=== PATIENT | female | born 1950 | race Caucasian/White ===

== ENCOUNTER 2018-04-17 05:14 | Inpatient (IN) ==
[2018-04-17] MEDS ORDERED: Chlorhexidine Gluconate 2% 1 Pack (2 Cloths) TOPICAL ONE (05:42)
[2018-04-17] MEDS ORDERED: Metoprolol Tartrate 25 MG Tablet PO ONE (05:42)
[2018-04-17] MEDS ORDERED: Chlorhexidine 4% Topical 120 APPLIC/120 ML Bottle TOPICAL SCH (05:45)
[2018-04-17] MEDS ORDERED: Vancomycin Inj 1,000 MG in Sodium Chlor 0.9% Inj 250 ML IV.SIG SCH (06:00)
[2018-04-17] MEDS ORDERED: Sodium Chlor 0.9% Inj 500 ML IV.SIG SCH (06:00)
[2018-04-17] MEDS ORDERED: Dexamethasone Inj 20 MG/5 ML Vial IV.PUSH ONE (06:00)
[2018-04-17] MEDS ORDERED: Famotidine PF Inj 20 MG/2 ML Vial ONE (06:17)
[2018-04-17] MEDS ORDERED: fentaNYL Citrate Inj 250 MCG/5 ML Ampul ONE (06:17)
[2018-04-17] MEDS ORDERED: fentaNYL Citrate Inj 100 MCG/2 ML Ampul ONE (06:17)
[2018-04-17] MEDS ORDERED: Ketamine Inj 50 MG/5 ML Syringe IV.PUSH ONE (06:32)
[2018-04-17] MEDS ORDERED: Bupivacaine Liposomal PF 1.3% Inj 20 ML Vial ONE (06:44)
[2018-04-17] MEDS ORDERED: Post-op Orders (for Pharmacy) OTHER STA (06:48)
[2018-04-17] MEDS ORDERED: Zolpidem Tartrate 5 MG Tablet PO PRN (06:48)
[2018-04-17] MEDS ORDERED: HYDROmorphone PF Inj 1 MG/ML Ampul IV.PUSH PRN (06:48)
[2018-04-17] MEDS ORDERED: Neostigmine Inj 5 MG/5 ML Syringe IV.PUSH ONE (06:59)
[2018-04-17] MEDS ORDERED: Lidocaine PF 1% Inj 5 ML Syringe OTHER ONE (06:59)
[2018-04-17] MEDS ORDERED: Ketorolac Inj 30 MG/ML (IVP) Vial IV.PUSH ONE (06:59)
[2018-04-17] MEDS ORDERED: Glycopyrrolate Inj 1 MG/5 ML Syringe IV.PUSH ONE (06:59)
[2018-04-17] MEDS ORDERED: Sodium Chlor 0.9% Inj 100 ML, Tranexamic Acid Inj 3,000 MG P-ARTICULR SCH ×2 (07:00)
[2018-04-17] MEDS ORDERED: Sodium Chlor 0.9% Inj 73.07 ML, Ropivacaine 0.5% PF Inj 24.63 ML, Ketorolac Inj 30 MG, ... P-ARTICULR SCH ×5 (07:00)
[2018-04-17] MEDS ORDERED: SODIUM CHLOR 0.9% IV.SIG SCH (07:00)
[2018-04-17] MEDS ORDERED: TRANEXAMIC ACID IV.SIG SCH (07:00)
[2018-04-17] MEDS ORDERED: ceFAZolin 2 GM Premix Inj 2 GM/50 ML PIGGYBACK IV.SIG SCH (07:00)
[2018-04-17] MEDS ORDERED: *Meperidine Inj 25 MG/ML Vial PERIprocedural Use ONLY ONE (09:33)
--- NOTE | 2018-04-17 09:46 | XR ---
EXAM DATE: 04/17/2018 6:47 AM EDT AGE/SEX: 68 years / Female INDICATIONS: Post op left total knee. CLINICAL DATA: This is the patient's initial encounter. Patient reports that signs and symptoms have been present for 1 day and indicates a pain score of Nonresponsive. MEDICAL/SURGICAL HISTORY: None. None. COMPARISON: No prior exams available for comparison. FINDINGS: A total knee arthroplasty is noted. The tibial and femoral components appear well seated. Surgical dr hunter and subcutaneous air are present. No fractures are seen. CONCLUSION: Status post left total knee arthroplasty. Electronically signed by: Alexandro Moody MD 04/17/2018 9:45 AM EDT
[2018-04-17] MEDS: amLODIPine 10 MG Tablet PO SCH (12:40)
[2018-04-17] MEDS: ceFAZolin Inj 2,000 MG in Sodium Chlor 0.9% Inj 80 ML IV.SIG SCH ×2 (14:55→18:18)
[2018-04-17] MEDS: Sertraline 100 MG Tablet PO SCH (14:56)
[2018-04-17] MEDS: Multivitamin/Minerals Therapeutic Tablet PO SCH ×2 (14:56→20:56)
[2018-04-17] MEDS: Senna/Docusate Sodium 8.6/50 MG Tablet PO SCH ×2 (14:56→20:57)
--- NOTE | 2018-04-17 15:29 | P.CONIM ---
History of Present Illness Service: [facility] Consult date: 04/17/18 Requesting Physician: Flaco Milton Reason for Consult: MEDICAL MANAGEMENT Primary Care Provider: Chris Vargas Chief Complaint: SP RIGHT TOTAL KNEE ARTHROPLASTY History of Present Illness: Patient is a 68-year-old female who underwent a right total knee arthroplasty today by Dr. Flaco Milton due to severe osteoarthritis. Patient tolerated the procedure well. We have been asked to help regarding medical management. Past medical history is significant for hypertension, hypothyroidism, hyperlipidemia, depression and anxiety. Patient underwent surgery on her right knee due to severe osteoarthritis and failed conservative treatment options. Family history significant for father having an OR in his 70s and being at 83 from dementia Review of Systems All other systems reviewed negative except as stated in [facility] - History History Provided By: Patient - Medical History Medical History: Medical History (Last Reviewed 04/17/18 @ 07:37 by Jessy Bucio) Arthritis Hyperlipidemia Hypertension Hypothyroidism Mitral valve prolapse Seasonal allergies - Surgical History Surgical History: Surgical History (Last Reviewed 04/17/18 @ 07:37 by Jessy Bucio) Hx of arthroscopy of left knee Hx of colonoscopy - Family History Family History: Family History (Last Updated 04/17/18 @ 15:25 by Eric Meng DO) Other Dementia Myocardial infarction - Social History I have reviewed the patient's Social History: Yes - Tobacco History Second Hand Smoke Exposure: No Tobacco Use In Past 30 Days: No Smoking Status: Never smoker - Alcohol History How Often Do You Have a Drink Containing Alcohol: 2 to 3 times a week - Substance Use History Substance History: No History of Abuse - Travel History History of Recent Travel: No Recent Travel in the [place] Within the Last 8 Weeks: No Recent Travel Out of the Country Within the Last 8 Weeks: No Medications and Allergies Active Medications: Active Medications Hydrocodone Bitart/Acetaminophen ([place] 7.5/325) 1 tab PO Q4H PRN PRN Reason: PAIN LESS THAN 5 ON SCALE Hydrocodone Bitart/Acetaminophen ([place] 7.5/325) 2 tab PO Q6H PRN PRN Reason: PAIN SCALE 5 TO 10 Last Admin: 04/17/18 11:54 Dose: 2 tab Al Hydroxide/Mg Hydroxide (Milk Of Magnesia Liq) 30 ml PO BID PRN PRN Reason: Mild Constipation Amlodipine Besylate (Norvasc) 10 mg PO DAILY PAUL Last Admin: 04/17/18 12:40 Dose: Not Given Aspirin (Aspirin Chew) 81 mg PO BID [facility] Last Admin: 04/17/18 09:51 Dose: 81 mg Chlorhexidine Gluconate (Hibiclens 4% Topical) 1 applicatio TOPICAL ONCE [facility] Stop: 04/21/18 05:44 Last Admin: 04/17/18 06:22 Dose: 1 applicatio Diphenhydramine HCl (Benadryl) 25 mg PO Q6H PRN PRN Reason: ITCHING Hydromorphone HCl (Dilaudid Pf Inj) 1 mg IV.PUSH Q3H PRN PRN Reason: BREAKTHROUGH PAIN Cefazolin Sodium 2,000 mg/ (Sodium Chloride) 100 mls @ 200 mls/hr IV.SIG Q6H [facility] Stop: 04/18/18 01:29 Last Admin: 04/17/18 14:55 Dose: 200 mls/hr Lactated Ringer's (Lr 1000 Ml Inj) 1,000 mls @ 80 mls/hr IV.CONT .[id number] [facility] Last Admin: 04/17/18 09:43 Dose: 80 mls/hr Lactulose (Lactulose Liq) 30 ml PO DAILY PRN PRN Reason: SEVERE CONSITIPATION Levothyroxine Sodium (Synthroid) 50 mcg PO DAILY@0600 [facility] Lisinopril (Prinivil) 40 mg PO DAILY [facility] Miscellaneous Information ([facility] Nursing Information) 0 each OTHER UNSCH PRN PRN Reason: SEE LABEL COMMENTS Stop: 04/18/18 08:56 Multivitamins/Minerals (Theragran-M) 1 tab PO BID [facility] Stop: 06/16/18 08:59 Last Admin: 04/17/18 14:56 Dose: 1 tab Ondansetron HCl (Zofran Inj) 4 mg IV.PUSH Q6H PRN PRN Reason: NAUSEA OR VOMITING Povidone Iodine (Betadine 7.5% Scrub) 1 applicatio TOPICAL ONCE [facility] Stop: 04/21/18 05:59 Pravastatin Sodium (Pravachol) 10 mg PO DAILY [facility] Last Admin: 04/17/18 12:41 Dose: Not Given Senna/Docusate Sodium (Amalia-Colace) 1 tab PO BID [facility] Last Admin: 04/17/18 14:56 Dose: 1 tab Sennosides (Senokot) 17.2 mg PO BID PRN PRN Reason: Moderate Constipation Sertraline HCl (Zoloft) 100 mg PO DAILY [facility] Last Admin: 04/17/18 14:56 Dose: 100 mg Sodium Chloride (Ns Flush) 2 ml IV.FLUSH UNSCH PRN PRN Reason: FLUSH AFTER USING IV ACCESS Sodium Chloride (Ns Flush) 2 ml IV.FLUSH BID [facility] Last Admin: 04/17/18 12:40 Dose: Not Given Zolpidem Tartrate (Ambien) 5 mg PO HS PRN PRN Reason: INSOMNIA Allergies Allergy/AdvReac Type Severity Reaction Status Date / Time shellfish derived Allergy Hives Verified 04/17/18 05:53 Home Medications Medication Instructions Recorded Confirmed Type amlodipine 10 mg PO DAILY 03/31/18 04/17/18 History cholecalciferol (vitamin D3) 5,000 unit PO DAILY 03/31/18 04/17/18 History [Vitamin D3] levothyroxine 50 mcg PO DAILY 03/31/18 04/17/18 History lisinopril 40 mg PO DAILY 03/31/18 04/17/18 History meloxicam 15 mg PO DAILY 03/31/18 04/17/18 History multivit with min-folic acid 1 tab PO DAILY 03/31/18 04/17/18 History [Adult Multivitamin Gummies] pravastatin 10 mg PO DAILY 03/31/18 04/17/18 History sertraline 100 mg PO DAILY 03/31/18 04/17/18 History Exam Vital signs: Vital Signs 04/17/18 05:59 04/17/18 08:56 04/17/18 09:15 Temperature 97.9 F 97.6 F Pulse Rate 68 80 76 Respiratory Rate 16 18 18 Blood Pressure 150/80 H 100/55 L 102/58 L Pulse Oximetry 98 92 L 93 L 04/17/18 09:30 04/17/18 09:45 04/17/18 10:00 Temperature Pulse Rate 82 78 74 Respiratory Rate 18 18 18 Blood Pressure 104/59 L 94/52 L 110/58 L Pulse Oximetry 94 L 93 L 93 L 04/17/18 11:30 04/17/18 12:58 Temperature 97.8 F 97.2 F L Pulse Rate 76 85 Respiratory Rate 18 19 Blood Pressure 107/60 129/61 Pulse Oximetry 93 L 90 L Intake & Output 04/16/18 04/17/18 04/17/18 18:59 06:59 18:59 Intake Total 1899.65 / 1899.65 Output Total 100 / 100 Balance 1799.65 / 1799.65 Weight 84.5 kg Intake: IV 412.65 / 412.65 Cyklokapron Inj 1,265 MG In NS 112.65 / 112.65 Inj 100 ML @ 200 mls/hr IV.SIG ONCE PAUL Rx#:[id number] Vancomycin Inj 1,000 MG In NS 250 / 250 Inj 250 ML @ 250 mls/hr IV.SIG WAX MOLDER PAUL Rx#:[id number] Ancef 2 GM Premix Inj 2 gm In 50 / 50 50 ml @ 100 mls/hr IV.SIG WAX MOLDER PAUL Rx#:[id number] Anesthesia Amount 1487 / 1487 Output: Estimated Blood Loss 100 / 100 Other: Weight On Admission 84.5 kg Narrative: GENERAL: Awake alert and oriented x3 talkative and cooperative SKIN: Warm and dry. Right knee is dressed HEAD: Atraumatic. Normocephalic. EYES: Pupils equal and round. No scleral icterus. No injection or drainage. ENT: No nasal bleeding or discharge. Mucous membranes pink and moist. Tongue is midline NECK: Trachea midline. No JVD. CARDIOVASCULAR: Regular rate and rhythm. S1-S2 no S3 or S4 RESPIRATORY: No accessory muscle use. Clear to auscultation. Breath sounds equal bilaterally. GASTROINTESTINAL: Abdomen soft, non-tender, nondistended. Hepatic and splenic margins not palpable. MUSCULOSKELETAL: Extremities without clubbing, cyanosis, or edema. No obvious deformities. Right knee is dressed NEUROLOGICAL: Awake and alert. No obvious cranial nerve deficits. Motor grossly within normal limits. Five out of 5 muscle strength in the arms and legs. Normal speech. PSYCHIATRIC: Appropriate mood and affect; insight and judgment normal. Results - Labs Labs: Laboratory Results - last 24 hr 04/17/18 06:00 Blood Type O Positive Blood Type Recheck Required Antibody Screen Negative - Imaging Impressions Knee X-Ray 04/17/18 06:47 CONCLUSION: Status post left total knee arthroplasty. Assessment and Plan - Plan Status post right total knee arthroplasty due to severe osteoarthritis. -Pain control per orthopedic surgery -DVT prophylaxis per orthopedic surgery Hypertension resume home medications, amlodipine and lisinopril Hyperlipidemia resume home medications continue on pravastatin Hypothyroidism resume home medications and check a TSH and free T4 in the a.m. -Continue on levothyroxine Depression/anxiety resume home medications continue on sertraline A.m. labs DVT prophylaxis per orthopedic surgery GI prophylaxis per Pepcid A.m. labs PT and OT Suspect patient will be discharged tomorrow Code Status: Full code Discussed Condition With: RN and patient Discharge Planning: Hopefully home with home health care tomorrow
[2018-04-18] MEDS: ceFAZolin Inj 2,000 MG in Sodium Chlor 0.9% Inj 80 ML IV.SIG SCH (01:09)
[2018-04-18 03:59] VITALS: RESP 20
[2018-04-18] MEDS ORDERED: Levothyroxine 50 MCG Tablet PO SCH (06:00)
[2018-04-18 07:24] LABS: Baso % (Auto) 0.2 % (0.0-2.0); Hematocrit 32.5 % (35.0-46.0); Hemoglobin 10.7 gm/dL (11.6-15.3); Lymph # (Auto) 1.7 th/mm3 (1.0-4.8); Lymph % (Auto) 8.8 % (9.0-44.0); Mean Corpuscular HGB Conc 32.9 % (32.0-36.0); Mean Corpuscular Hemoglobin 30.3 pg (27.0-34.0); Mean Platelet Volume 8.3 fL (7.0-11.0); Mono # (Auto) 1.9 th/mm3 (0.0-0.9); Mono % (Auto) 10.1 % (0.0-8.0); Neut # (Auto) 15.6 th/mm3 (1.8-7.7); Neut % (Auto) 80.9 % (16.0-70.0); Platelet Count 359 th/mm3 (150-450); Red Blood Count 3.53 mil/mm3 (4.00-5.30); Red Cell Distribution Width 12.6 % (11.6-17.2); White Blood Count 19.3 th/mm3 (4.0-11.0)
[2018-04-18 07:51] LABS: Albumin 3.2 g/dL (3.4-5.0); Anion Gap 9 meq/L (5-15); Aspartate Aminotransferase 22 U/L (15-37); Blood Urea Nitrogen 12 mg/dL (7-18); Calcium 8.7 mg/dL (8.5-10.1); Carbon Dioxide 26.7 meq/L (21.0-32.0); Chloride 104 meq/L (98-107); Glomerular Filtration Rate 76 mL/min (>89); Glucose,Random 107 mg/dL (74-106); Magnesium 2.4 mg/dL (1.5-2.5); Sodium 140 meq/L (136-145)
[2018-04-18 07:57] LABS: Alanine Aminotransferase 18 U/L (10-53); Alkaline Phosphatase 54 U/L (45-117); Free T4 (Free Thyroxine) 1.43 ng/dL (0.76-1.46); Phosphorus 4.1 mg/dL (2.5-4.9); Thyroid Stimulating Hormone 0.459 uIU/mL (0.358-3.740); Total Protein 6.6 g/dL (6.4-8.2)
[2018-04-18 07:59] LABS: Potassium 4.3 meq/L (3.5-5.1)
--- NOTE | 2018-04-18 08:15 | P.PNOP ---
Subjective Interval history: pain under control. Physical Exam Vital signs: Vital Signs 04/17/18 08:56 04/17/18 09:15 04/17/18 09:30 Temperature 97.6 F Pulse Rate 80 76 82 Respiratory Rate 18 18 18 Blood Pressure 100/55 L 102/58 L 104/59 L Pulse Oximetry 92 L 93 L 94 L 04/17/18 09:45 04/17/18 10:00 04/17/18 11:30 Temperature 97.8 F Pulse Rate 78 74 76 Respiratory Rate 18 18 18 Blood Pressure 94/52 L 110/58 L 107/60 Pulse Oximetry 93 L 93 L 93 L 04/17/18 12:58 04/17/18 17:02 04/17/18 20:00 Temperature 97.2 F L 97.6 F 98.4 F Pulse Rate 85 70 73 Respiratory Rate 19 20 19 Blood Pressure 129/61 118/60 113/59 L Pulse Oximetry 90 L 90 L 94 L 04/18/18 00:00 04/18/18 03:56 Temperature 97.3 F L 99.2 F Pulse Rate 64 62 Respiratory Rate 17 20 Blood Pressure 101/62 99/57 L Pulse Oximetry 95 92 L Intake & Output 04/17/18 04/18/18 04/18/18 18:59 06:59 18:59 Intake Total 2999.65 / 2999.65 200 / 200 Output Total 100 / 100 Balance 2899.65 / 2899.65 200 / 200 Weight 84.5 kg Intake: IV 1512.65 / 1512.65 200 / 200 LR 1000 mL Inj 1,000 ML @ 30 1000 / 1000 mls/hr IV.SIG .Q24H PA[facility] Rx#: [id number] Cyklokapron Inj 1,265 MG In NS 112.65 / 112.65 Inj 100 ML @ 200 mls/hr IV.SIG ONCE PAUL Rx#:[id number] Vancomycin Inj 1,000 MG In NS 250 / 250 Inj 250 ML @ 250 mls/hr IV.SIG OIL CHANGE TECHNICIAN PAUL Rx#:[id number] Ancef 2 GM Premix Inj 2 gm In 50 / 50 50 ml @ 100 mls/hr IV.SIG OIL CHANGE TECHNICIAN PAUL Rx#:[id number] Ancef Inj 2,000 MG In NS Inj 80 100 / 100 200 / 200 ML @ 200 mls/hr IV.SIG Q6H [facility] Rx#:[id number] Anesthesia Amount 1487 / 1487 Output: Estimated Blood Loss 100 / 100 Other: Date of Last Bowel Movement 04/17/18 04/17/18 Narrative: in bed, nad dressing c/d/i neg betty nvi Results - Labs CBC & Chem 7: 04/18/18 06:28 04/18/18 06:28 Laboratory Results - last 24 hr 04/18/18 04/18/18 06:28 06:28 WBC 19.3 H RBC 3.53 L Hgb 10.7 L Hct 32.5 L MCV 92.0 MCH 30.3 MCHC 32.9 RDW 12.6 Plt Count 359 MPV 8.3 Neut % (Auto) 80.9 H Lymph % (Auto) 8.8 L [place] % (Auto) 10.1 H Eos % (Auto) 0.0 Baso % (Auto) 0.2 Neut # (Auto) 15.6 H Lymph # (Auto) 1.7 [place] # (Auto) 1.9 H Eos # (Auto) 0.0 Baso # (Auto) 0.0 WBC Differential . Differential Comment Auto diff final Sodium 140 Potassium 4.3 Chloride 104 Carbon Dioxide 26.7 Anion Gap 9 BUN 12 Creatinine 0.76 Estimated GFR 76 L Random Glucose 107 H Calcium 8.7 Phosphorus 4.1 Magnesium 2.4 Total Bilirubin 0.4 AST 22 ALT 18 Alkaline Phosphatase 54 Total Protein 6.6 Albumin 3.2 L TSH 0.459 Free T4 1.43 - Imaging Impressions Knee X-Ray 04/17/18 06:47 CONCLUSION: Status post left total knee arthroplasty. Assessment and Plan - Ortho Post Op Day # 1 - Assessment and Plan s/p L TKA wbat ok to maintain dressing unless saturated asa 81 d/c planning home with hhc and PT - cleared today if does well in PT f/up dr. brandt 2 weeks
--- NOTE | 2018-04-18 08:16 | P.DCO ---
- Physical Therapy Physical Therapy: Gait training, Safety evaluation, Transfer training, bed to chair Knee: Total knee, Protocol: Left, Full weight bearing Left Lower Extremity Weight Bearing: Weight bearing as tolerated - Nursing RN: 3 days/week x 2 weeks Nursing: Dressing changes Dressing changes: Do not change dressing, Daily dressing change - Certification Need for Home Health services: I have seen patient Moira Glass on 04/18/18. My clinical findings support the need for the requested home health care services because: Need for Home Health Services: Limited ability to care for self, High risk of falls Homebound Certification: I certify that my clinical findings support that this patient is homebound because: Homebound Certification: Post-op weakness, Unsteady gait/balance
[2018-04-18] MEDS: Multivitamin/Minerals Therapeutic Tablet PO SCH (08:36)
[2018-04-18] MEDS: Senna/Docusate Sodium 8.6/50 MG Tablet PO SCH (08:36)
[2018-04-18] MEDS: amLODIPine 10 MG Tablet PO SCH (08:36)
[2018-04-18] MEDS: Sertraline 100 MG Tablet PO SCH (08:37)
[2018-04-18] MEDS ORDERED: Lisinopril 20 MG Tablet PO SCH (09:00)
--- NOTE | 2018-04-18 10:38 | P.PNIM ---
Subjective Interval history: Chief Complaint: SP LEFT TOTAL KNEE ARTHROPLASTY History of Present Illness: Patient is a 68-year-old female who underwent a LEFT total knee arthroplasty today by Dr. Flaco Milton due to severe osteoarthritis. Patient tolerated the procedure well. We have been asked to help regarding medical management. Past medical history is significant for hypertension, hypothyroidism, hyperlipidemia, depression and anxiety. Patient underwent surgery on her right knee due to severe osteoarthritis and failed conservative treatment options. Family history significant for father having an AL in his 70s and being at 83 from dementia 04-18 NO NEW COMPLAINTS TO GO HOME TODAY WITH [facility] HAS BEEN CLEARED BY ORTHO AFTER CLASS TODAY LABS ARE STABLE DW RN AND PT OK FROM HOSPITALIST PERSPECTIVE FOR DC Physical Exam Vital signs: Vital Signs 04/17/18 11:30 04/17/18 12:58 04/17/18 17:02 Temperature 97.8 F 97.2 F L 97.6 F Pulse Rate 76 85 70 Respiratory Rate 18 19 20 Blood Pressure 107/60 129/61 118/60 Pulse Oximetry 93 L 90 L 90 L 04/17/18 20:00 04/18/18 00:00 04/18/18 03:56 Temperature 98.4 F 97.3 F L 99.2 F Pulse Rate 73 64 62 Respiratory Rate 19 17 20 Blood Pressure 113/59 L 101/62 99/57 L Pulse Oximetry 94 L 95 92 L 04/18/18 08:00 Temperature 98.4 F Pulse Rate 67 Respiratory Rate 20 Blood Pressure 133/64 Pulse Oximetry 97 Intake & Output 04/17/18 04/18/18 04/18/18 18:59 06:59 18:59 Intake Total 2999.65 / 2999.65 200 / 200 Output Total 100 / 100 Balance 2899.65 / 2899.65 200 / 200 Weight 84.5 kg Intake: IV 1512.65 / 1512.65 200 / 200 LR 1000 mL Inj 1,000 ML @ 30 1000 / 1000 mls/hr IV.SIG .Q24H PAUL Rx#: [id number] Cyklokapron Inj 1,265 MG In NS 112.65 / 112.65 Inj 100 ML @ 200 mls/hr IV.SIG ONCE PAUL Rx#:[id number] Vancomycin Inj 1,000 MG In NS 250 / 250 Inj 250 ML @ 250 mls/hr IV.SIG SHEARER HELPER PAUL Rx#:[id number] Ancef 2 GM Premix Inj 2 gm In 50 / 50 50 ml @ 100 mls/hr IV.SIG SHEARER HELPER PAUL Rx#:[id number] Ancef Inj 2,000 MG In NS Inj 80 100 / 100 200 / 200 ML @ 200 mls/hr IV.SIG Q6H [facility] Rx#:[id number] Anesthesia Amount 1487 / 1487 Output: Estimated Blood Loss 100 / 100 Other: Date of Last Bowel Movement 04/17/18 04/17/18 04/17/18 Narrative: GENERAL: Awake alert and oriented x3 talkative and cooperative SKIN: Warm and dry. Right knee is dressed HEAD: Atraumatic. Normocephalic. EYES: Pupils equal and round. No scleral icterus. No injection or drainage. ENT: No nasal bleeding or discharge. Mucous membranes pink and moist. Tongue is midline NECK: Trachea midline. No JVD. CARDIOVASCULAR: Regular rate and rhythm. S1-S2 no S3 or S4 RESPIRATORY: No accessory muscle use. Clear to auscultation. Breath sounds equal bilaterally. GASTROINTESTINAL: Abdomen soft, non-tender, nondistended. Hepatic and splenic margins not palpable. MUSCULOSKELETAL: Extremities without clubbing, cyanosis, or edema. No obvious deformities. NEUROLOGICAL: Awake and alert. No obvious cranial nerve deficits. Motor grossly within normal limits. Five out of 5 muscle strength in the arms and legs. Normal speech. PSYCHIATRIC: Appropriate mood and affect; insight and judgment normal. Results - Labs CBC & Chem 7: 04/18/18 06:28 04/18/18 06:28 Laboratory Results - last 24 hr 04/18/18 04/18/18 06:28 06:28 WBC 19.3 H RBC 3.53 L Hgb 10.7 L Hct 32.5 L MCV 92.0 MCH 30.3 MCHC 32.9 RDW 12.6 Plt Count 359 MPV 8.3 Neut % (Auto) 80.9 H Lymph % (Auto) 8.8 L [place] % (Auto) 10.1 H Eos % (Auto) 0.0 Baso % (Auto) 0.2 Neut # (Auto) 15.6 H Lymph # (Auto) 1.7 [place] # (Auto) 1.9 H Eos # (Auto) 0.0 Baso # (Auto) 0.0 WBC Differential . Differential Comment Auto diff final Sodium 140 Potassium 4.3 Chloride 104 Carbon Dioxide 26.7 Anion Gap 9 BUN 12 Creatinine 0.76 Estimated GFR 76 L Random Glucose 107 H Calcium 8.7 Phosphorus 4.1 Magnesium 2.4 Total Bilirubin 0.4 AST 22 ALT 18 Alkaline Phosphatase 54 Total Protein 6.6 Albumin 3.2 L TSH 0.459 Free T4 1.43 - Imaging ITS Impressions Knee X-Ray 04/17/18 06:47 CONCLUSION: Status post left total knee arthroplasty. Assessment and Plan - Plan Status post LEFT total knee arthroplasty due to severe osteoarthritis. -Pain control per orthopedic surgery -DVT prophylaxis per orthopedic surgery Hypertension resume home medications, amlodipine and lisinopril Hyperlipidemia resume home medications continue on pravastatin Hypothyroidism resume home medications and check a TSH and free T4 in the a.m. -Continue on levothyroxine Depression/anxiety resume home medications continue on sertraline A.m. labs DVT prophylaxis per orthopedic surgery GI prophylaxis per Pepcid PT and OT Suspect patient will be discharged TODAY Code Status: FULL CODE Discussed Condition With: NOAH RN AND PT AND FAMILY Discharge Planning: Hopefully home with home health care tomorrow
--- NOTE | 2018-04-18 11:34 | MP ---
cc: Flaco Milton MD DATE OF OPERATION: 04/17/2018 PREOPERATIVE DIAGNOSIS: Left knee osteoarthritis. POSTOPERATIVE DIAGNOSIS: Left knee osteoarthritis. PROCEDURE: Left total knee arthroplasty. SURGEON: Flaco Milton MD GAME TESTER: MARISELA Kelly. ANESTHESIA: General with a femoral nerve adductor canal block. ESTIMATED BLOOD LOSS: 100 mL TOURNIQUET TIME: 33 minutes at 275 mmHg. COMPLICATIONS: None. IMPLANTS USED: DePuy Attune size 6 narrow posterior stabilized femoral component, size 5 rotating platform tibial baseplate, size 38 patella, size 6 mm polyethylene tibial insert. JUSTIFICATION: The patient is a 68-year-old female who has a history of severe end-stage osteoarthritis involving the left knee joint. She has severe disabling pain with standing, walking, ambulation, weightbearing activities, and severe pain at rest. She has failed greater than 3 months of nonoperative conservative treatment to include medication therapy, injections, ambulatory assist aids, a home-exercise program, activity modification, and weight loss attempts. X-rays of the left knee reveal severe osteoarthritis with [id number] joint space narrowing, subchondral sclerosis, subchondral cyst, osteophyte formation with varus deformity and subluxation. The patient was counseled as to the risks, benefits and alternatives to a left total knee arthroplasty. The risks discussed included, but were not limited to anesthesia, bleeding, infection, damage to nerves and blood vessels, pain, stiffness, failure of hardware, blood clots, pulmonary embolism, and even . The patient's pain is severe. She favored the benefits over the risks and wished to proceed with surgery. PROCEDURE IN DETAIL: Written consent was obtained. The patient was identified by name, taken to the operating room, placed supine, and general anesthesia was administered as well as 2 grams of IV Ancef and 1 gram IV vancomycin. A well-padded tourniquet was placed on the left thigh. The left lower extremity was prepped and draped using isopropyl alcohol, Hibiclens solution, and ChloraPrep solution. After a timeout was performed, an Esmarch bandage was used to exsanguinate the left lower extremity and the tourniquet was inflated to 275 mmHg. A longitudinal incision was made over the anterior aspect of the left knee, medial parapatellar arthrotomy was performed until the patella was everted. A patellar resecting guide was used to resect 9 mm of the patella, a size 38 mm guide was placed, 3 drill holes were placed, and the 38 mm trial fit well. Attention was turned to the femur, where an intramedullary guide was placed and the distal femoral guide was set to remove 10 mm of distal femur, 5 degrees off the anatomic valgus axis alignment. An oscillating saw was used to perform the distal femoral cut. Attention was turned to the tibia where an extramedullary tibial guide was set to remove 6 mm off the lowest portion of the medial tibial plateau, the tibial guide was pinned in place and a tibial cut was performed. A 5 mm spacer block showed full extension. Attention was turned back to the femur, where the AP sizing blocked measured a size 6. The anterior reference 3-degree external rotation guide was used to pin a size [address], the anterior, posterior, and chamfer cuts were performed. A size 6 PCL box was pinned in place and the PCL was box cut with an oscillating saw. The medial and lateral meniscus remnants were removed, as well as bone and soft tissue debris from the posterior portion of the knee. A size 5 tibial base plate was pinned in place. The tibia was drilled and punched. Trial components were evaluated and final components cemented in place with the current components. The leg could to achieve full extension to 0 degrees and flexion to 140. No evidence of the tibial lift off, varus-valgus balance seemed appropriate and symmetric, and the patella was noted to track centrally. With the tourniquet deflated, Bovie cautery was used for hemostasis. The surgical wound was thoroughly irrigated with sterile saline, pulse lavaged with antibiotic impregnated solution. The arthrotomy incision was closed with #1 Vicryl suture, subcutaneous layer with 2-0 Vicryl, and the skin was closed with Dermabond. A sterile dressing was applied. The patient tolerated the procedure well with no intraoperative complications noted. Yusef Dial, Physician Riverboat Master-Certified was present for the entire procedure to include the patient positioning and the procedure itself. The medical necessity of a physician behavioral assistant was indicated in this case due to the complexity of the procedure. He assisted with appropriate manipulation of the patient's leg and also retraction of muscle, tendon, bone, and neurovascular structures. He assisted in the preparation of bone and also implantation of the prosthetic replacement. MD RANDAL Luis/alejandro , 08:39 AM , 08:47 AM
[2018-04-18 12:55] VITALS: BP 102/60; PULSE 69; TEMP 98; O2SAT 98
[2018-04-18 18:30] LABS: Hemoglobin A1c 5.5 % (4.3-6.0)
--- NOTE | 2018-05-02 13:16 | MD ---
cc: Flaco Milton MD DATE OF DISCHARGE: 04/18/2018 ADMITTING DIAGNOSIS: Severe degenerative osteoarthritis of left knee. DISCHARGE DIAGNOSIS: Severe degenerative osteoarthritis of left knee. HISTORY OF PRESENT ILLNESS: Mrs. Glass is a 68-year-old female who [facility] for evaluation by Dr. lFaco Milton regarding his severe and progressive left knee pain. The patient states that the knee pain has been bothering her numerous years and is currently inhibiting her activities of daily living. She states she has a severe aching sensation in the left knee with weightbearing activities. She has no alleviating factors at this point in time, although in the past she has tried medications, bracing, arthroscopic surgery, physical therapy, home exercises and multiple corticosteroid injections without long lasting relief of symptoms. She does have x-ray evidence of severe degenerative osteoarthritis of left knee. While in the office, the patient was counseled on her diagnosis and treatment options. Risks, benefits, and indications were discussed. The patient did elect to proceed with surgical intervention to include a left total knee arthroplasty; date of surgery 04/17/2015, left total knee arthroplasty. Postop after surgery, the patient was admitted [facility] where she received appropriate medical management, pain control, DVT prophylaxis, as well as physical therapy. DISCHARGE: The patient has been discharged home with home health care and home physical therapy. She is in stable condition. She may weight bear as tolerated. She has been instructed on wound care management. The patient has been provided prescriptions for pain control and DVT prophylaxis medication. She has also been provided a followup appointment approximately 2 weeks from her date of surgery. The patient asked appropriate questions which have been answered. The patient has been discharged. Dictated by MARISELA Eaton Flaco Milton MD [email or web address] , 10:58 AM , 11:05 AM
== END 2018-04-18 14:26 | disposition home health service (06) ==
LOC: HSDI 05:14 → N06 11:39
PROVIDERS: ADMIT Orthopaedic Surgery Sports Medicine; ATTEND Orthopaedic Surgery Sports Medicine